=== PATIENT | male | born 1960 | race Caucasian/White ===

== ENCOUNTER 2017-12-24 23:36 | Emergency (ER) | payer OTHER ==
[~2017-12-24] VITALS: Ht 175.2 cm; Wt 63.5 kg
[~2017-12-24 23:36] MED LIST: 'TENORMIN50 MG PO; ANAPROX DS550 MG PO; B-1100 M1 PO; CATAFLAM50 MG PO; CEPHALEXIN500 M1 PO; CHLORDIAZEPOXID25 M1 PO; DARVOCET N 1001 TAB PO; DILANTIN100 MG PO; FLEXERIL10 MG PO; HYDROCODONE BIT1 T11 PO; IBU-8800 MG PO; KEFLEX500 MG PO; METOPROLOL SR25 MG PO; MOTRIN800 MG PO; Motrin,Rufen800 MG PO; NATURE'S BLEND F1 MG PO; NEURONTIN300 MG PO; NKHM; NORFLEX100 MG PO; PERCOCET 325 MG1 TA3 PO; PREDNISONE20 MG PO; ROBAXIN750 MG PO; TENORMIN50 MG PO; TRAMADOL HCL50 MG PO; ULTRAM50 MG PO; VICODIN 5-3001 EACH PO; VICODIN 5/500 505 MG PO; VOLTAREN75 MG PO; XANAX2 MG PO
[2017-12-25] MEDS ORDERED: CEPHALEXIN500 M1 PO (01:38)
== END 2017-12-25 02:21 | disposition home or self-care (01) ==
LOC: ED 23:36
DX: S51.011A Laceration without foreign body of right elbow, initial encounter (principal); F17.200 Nicotine dependence, unspecified, uncomplicated; Z23 Encounter for immunization; Z79.899 Other long term (current) drug therapy; W01.0XXA Fall on same level from slipping, tripping and stumbling without subsequent striking against object, initial encounter; Y93.89 Activity, other specified; Y92.89 Other specified places as the place of occurrence of the external cause; Y99.8 Other external cause status

== ENCOUNTER 2018-04-23 16:21 | Emergency (ER) | payer OTHER ==
[~2018-04-23] VITALS: Ht 175.2 cm; Wt 59.0 kg
== END 2018-04-23 16:50 | disposition left against medical advice (07) ==
LOC: ED 16:21
DX: F19.239 Other psychoactive substance dependence with withdrawal, unspecified (principal); R42 Dizziness and giddiness; Z53.21 Procedure and treatment not carried out due to patient leaving prior to being seen by health care provider

== ENCOUNTER 2018-09-11 03:23 | Emergency (ER) | payer OTHER ==
[~2018-09-11] VITALS: Ht 167.6 cm; Wt 59.0 kg
[2018-09-11 03:56] LABS: BASO % 0.3 % (0.0-1.0); EOS # 0.1 10*3/uL (0.0-0.4); EOS % 1.2 % (1.0-4.0); HEMOGLOBIN 13.2 g/dl (14.0-18.0); LYMPH # 3.1 10*3/uL (1.3-4.4); LYMPH % 31.9 % (27.0-41.0); MEAN CORPUSCULAR HGB 32.8 pg (27.0-31.0); MEAN CORPUSCULAR HGB CONC 33.8 g/dl (33.0-37.0); MEAN PLATELET VOLUME 10.3 fl (9.6-12.3); MONO # 0.9 10*3/uL (0.1-1.0); MONO % 9.3 % (3.0-9.0); NEUT # 5.5 10*3/uL (2.3-7.9); PLATELET COUNT AUTOMATED 172 10*3/uL (130-400); RED BLOOD COUNT 4.02 10*6/uL (4.50-5.90); RED CELL DISTRI WIDTH 14.1 % (0-14.5); WHITE BLOOD COUNT 9.6 10*3/uL (4.8-10.8)
[2018-09-11 04:04] LABS: INTERNATIONAL NORM RATIO 0.9 (2.0-3.5)
[2018-09-11 04:12] LABS: ALBUMIN 3.5 gm/dl (3.1-4.5); ALKALINE PHOSPHATASE 56 U/L (45-117); BUN 21 mg/dl (7-24); CHLORIDE 107 mmol/L (98-107); CREATININE 0.62 mg/dL (0.70-1.30); POTASSIUM 4.2 mmol/L (3.5-5.1); SGOT/AST 21 IU/L (3-35); SGPT/ALT 33 U/L (12-78); SODIUM 141 mmol/L (136-145); TOTAL PROTEIN 7.3 gm/dL (6.4-8.2)
[2018-09-11 04:14] LABS: ETHYL ALCOHOL < 3.0 mg/dl (<3)
[2018-09-11 05:09] LABS: BILIRUBIN NEGATIVE (NEGATIVE); BLOOD 2+ (NEGATIVE); CLARITY CLEAR (CLEAR); COLOR YELLOW (YELLOW); GLUCOSE NEGATIVE (NEGATIVE); KETONE NEGATIVE (NEGATIVE); LEUKO ESTERASE NEGATIVE (NEGATIVE); NITRITE NEGATIVE (NEGATIVE); SPECIFIC GRAVITY <= 1.005 (1.005-1.030); URINE AMPHETAMINES < 1000 (1000ng/ml); URINE BARBITURATES < 200 (200ng/ml); URINE BENZODIAZEPINES > 200 (200ng/ml); URINE CANNABINOIDS (THC) < 50 (50ng/ml); URINE COCAINE < 300 (300ng/ml); URINE METHADONE < 300 (300ng/ml); URINE OPIATES < 300 (300ng/ml); UROBILINOGEN 0.2 E.U./dl (0.2-1.0)
[2018-09-11 05:10] LABS: URINE PHENCYCLIDINE < 25 (25ng/ml)
[2018-09-11 05:24] LABS: RBC 16-20 rbc/hpf (0-2); WBC 0-2 wbc/hpf (0-5)
== END 2018-09-11 09:36 | disposition home or self-care (01) ==
LOC: ED 03:23
PROVIDERS: Emergency Medicine
DX: F11.10 Opioid abuse, uncomplicated (principal); I10 Essential (primary) hypertension; F17.200 Nicotine dependence, unspecified, uncomplicated; Z79.899 Other long term (current) drug therapy; Z89.021 Acquired absence of right finger(s)

== ENCOUNTER 2018-12-21 23:41 | Inpatient (IN) | payer OTHER ==
[2018-12-21 23:45] VITALS: BP 112/79
[2018-12-22 00:46] LABS: ALBUMIN 3.6 gm/dl (3.1-4.5); ALKALINE PHOSPHATASE 67 U/L (45-117); BUN 11 mg/dl (7-24); CHLORIDE 109 mmol/L (98-107); CREATININE 0.69 mg/dL (0.70-1.30); POTASSIUM 3.9 mmol/L (3.5-5.1); SGOT/AST 45 IU/L (3-35); SGPT/ALT 82 U/L (12-78); SODIUM 142 mmol/L (136-145); TOTAL PROTEIN 7.8 gm/dL (6.4-8.2)
[2018-12-22 00:47] LABS: ACETAMINOPHEN (TYLENOL) < 5.0 ug/ml (10-30)
[2018-12-22 01:06] LABS: BASO % 0.5 % (0.0-1.0); EOS # 0.1 10*3/uL (0.0-0.4); EOS % 0.8 % (1.0-4.0); HEMATOCRIT 44.1 % (42.0-52.0); HEMOGLOBIN 14.7 g/dl (14.0-18.0); LYMPH # 2.2 10*3/uL (1.3-4.4); MEAN CELL VOLUME 98.2 fl (80.0-94.0); MEAN CORPUSCULAR HGB 32.7 pg (27.0-31.0); MEAN CORPUSCULAR HGB CONC 33.3 g/dl (33.0-37.0); MEAN PLATELET VOLUME 10.4 fl (9.6-12.3); MONO # 0.6 10*3/uL (0.1-1.0); MONO % 7.2 % (3.0-9.0); NEUT % 63.2 % (47.0-73.0); PLATELET COUNT AUTOMATED 170 10*3/uL (130-400); RED BLOOD COUNT 4.49 10*6/uL (4.50-5.90); RED CELL DISTRI WIDTH 13.8 % (0-14.5); WHITE BLOOD COUNT 7.9 10*3/uL (4.8-10.8)
[2018-12-22 01:37] VITALS: BP 145/87
[2018-12-22 01:39] LABS: BILIRUBIN NEGATIVE (NEGATIVE); BLOOD 2+ (NEGATIVE); CLARITY CLEAR (CLEAR); COLOR YELLOW (YELLOW); GLUCOSE NEGATIVE (NEGATIVE); KETONE NEGATIVE (NEGATIVE); LEUKO ESTERASE NEGATIVE (NEGATIVE); NITRITE NEGATIVE (NEGATIVE); PH 5.5 (5.0-9.0); SPECIFIC GRAVITY <= 1.005 (1.005-1.030); UROBILINOGEN 0.2 E.U./dl (0.2-1.0)
[2018-12-22 01:47] LABS: URINE AMPHETAMINES < 1000 (1000ng/ml); URINE BARBITURATES < 200 (200ng/ml); URINE BENZODIAZEPINES > 200 (200ng/ml); URINE CANNABINOIDS (THC) < 50 (50ng/ml); URINE COCAINE < 300 (300ng/ml); URINE METHADONE < 300 (300ng/ml); URINE OPIATES < 300 (300ng/ml)
[2018-12-22 01:52] LABS: URINE PHENCYCLIDINE < 25 (25ng/ml)
--- NOTE | 2018-12-22 02:13 | NUR ---
Time: 212 A 58 year old MALE admitted to 4E under services of KAMALJIT MARCUS DO. Pt. arrived via stretcher from ER. Chief complaint: OPIATE WITHDRAWAL. PONCHO OMALLEY
[2018-12-22 02:30] VITALS: BP 154/87
--- NOTE | 2018-12-22 02:34 | NUR ---
PT HAS SMALL ABRASION TO RT SIDE OF FOREHEAD. PT REFUSED WOUND PHOTOGRAPHY STATING NOT NECESSARY. UPON BEDSIDE REPORT ON 4E 427, PT SHAYAN ISAAC RN BAREING WITNESS TO PT REFUSING WOUND PHOTOGRAPHY.
--- NOTE | 2018-12-22 02:47 | NUR ---
PATIENT REFUSING PICTURES AND TREATMENT OF FACIAL WOUND
[2018-12-22] MEDS ORDERED: SUBOXONE 8 MG-1 EACH SL (02:58)
[2018-12-22] MEDS ORDERED: DILANTIN100 MG PO (03:01)
--- NOTE | 2018-12-22 03:02 | NUR ---
SPOKE WITH DR BARRERA REGARDING PATIENT'S MED REC. PATIENT STATES HE HAS NOT TAKEN HIS DILANTIN FOR A WHILE BECAUSE HE DOES NOT NEED IT. STATES HIS LAST SEIZURE WAS ABOUT 6 MONTHS AGO. ALSO STATES HE ONLY TAKES HIS BLOOD PRESSURE MEDICATION "SOMETIMES." DR BARRERA AWARE OF THE LAST TIME THE MEDICATIONS WERE FILLED. HE STATES WE WILL TALK TO THE PATIENT ABOUT HIS MEDICATIONS AGAIN WHEN HE IS MORE ALERT.
--- NOTE | 2018-12-22 03:25 | NUR ---
MEDICATED WITH PRN ZOFRAN FOR C/O NAUSEA. NICOTINE PATCH APPLIED TO RIGHT UPPER ARM FOR CIGARETTE CRAVINGS. WILL MONITOR
[2018-12-22 06:18] LABS: PHENYTOIN (DILANTIN) < 0.4 ug/ml (10-20)
--- NOTE | 2018-12-22 07:49 | NUR ---
PHYSICAL THERAPY PAtient just admitted. PAtient intoxicated at admitt. Will defer this date and check status 12/23/18. Thank you for this referral. Renuka Pak,PT
--- NOTE | 2018-12-22 09:09 | NUR ---
C/O 'SHAKINESS', NAUSEA, LEGS CRAMPS, ANXIETY, RESTLESS LEGS AND ABD CRAMPS, GIVEN BENTYL, REQUIP, ROBAXIN, VISTARIL AND ZOFRAN. WILL CONT TO MONITOR. CALL LIGHT IN REACH.
--- NOTE | 2018-12-22 10:09 | NUR ---
PRN'S EFF. WILL CONT TO MONITOR. CALL LIGHT IN REACH.
--- NOTE | 2018-12-22 11:22 | NUR ---
MOTRIN GIVEN FOR C/O LEG PAIN OF 6/10. WILL CONT TO MONITOR. CALL LIGHT IN REACH.
--- NOTE | 2018-12-22 11:41 | NUR ---
PATIENT MEETS [facility]. PATIENT WANTS TO FOLLOW UP WITH HIS COUNSELING APPOINTMENT ON THURSDAY, December WITH [facility] [place]. GABBI PALOMO B.A. QUALITY ASSURANCE SPECIALIST
[2018-12-22 12:00] VITALS: BP 122/82
--- NOTE | 2018-12-22 12:22 | NUR ---
PT STATES THAT LEG PAIN IS A LITTLE BETTER AFTER MOTRIN. RATES IT A 4/10. WILL CONT TO MONITOR. CALL LIGHT IN REACH.
--- NOTE | 2018-12-22 13:16 | NUR ---
LANDON GODFREY [id number] Please refer to the physician's history and physical for past medical history, comorbid conditions, and allergies. Diagnosis: OPIATE WITHDRAWAL,ALCOHOL INTOX Hunter Score: 20,LOW OR NO RISK WOUND DESCRIPTIONS: INTACT SCABS NOTED TO RIGHT FOREHEAD AND CORNER OF RIGHT EYE. NO DRAINAGE OR ERYTHEMA NOTED. PATIENT STATES HE FELL HITTING HIS HEAD WHEN GETTING OUT OF BED. PATIENT DENIED PAIN AT TIME OF ASSESSMENT. Surface the patient is resting on: Isoflex SKIN PREVENTION RECOMMENDATION: 1. Pressure redistribution support surface as appropriate 2. Elevate heels 3. Remove boots/TEDS every shift and reapply 4. Head of bed 30 degrees as tolerated 5. Assess nutrition and hydration 6. Manage moisture 7. Avoid the use of containment devices while in bed 8. Use absorptive products on surfaces limit layers of linens on bed 9. Turn and reposition every 1-2 hours in bed and every 1 hour in chair as tolerated 10. Weight shifts every 15 minutes while up in chair 11. Offloading with pillows or device to keep heels elevated off bed 12. Monitor skin at least every shift 13. Inspect under medical devices twice a day WOUND TREATMENT RECOMMENDATIONS: PER PATIENT'S REQUEST LEAVE OPEN TO AIR.
--- NOTE | 2018-12-22 15:26 | NUR ---
PT RESTING QUIETLY. STATES HE DOESN'T NEED ANYTHING AT THIS TIME. WILL CONT TO MONITOR. CALL LIGHT IN REACH.
[2018-12-22 16:00] VITALS: BP 102/63
[2018-12-22 20:00] VITALS: BP 125/70
[2018-12-23] VITALS: BP 96/68
[2018-12-23 08:00] VITALS: BP 116/72
--- NOTE | 2018-12-23 10:54 | NUR ---
PATIENT REQUESTING MEDIATION FOR RESTLESSNESS AND MUSCLE ACHES. REQUIP AND ROBAXIN ADMINISTERED PRESCRIBED. WILL MONITOR FOR EFFECTIVENESS.
--- NOTE | 2018-12-23 11:14 | NUR ---
NO CHANGES HAVE BEEN MADE TO THE PATIENT'S AFTERCARE PLAN. PATIENT WILL FOLLOW UP WITH [facility] ON DECEMBER 28, 2018. STEVEN MORSE MS DEVELOPMENT TECHNICIAN
--- NOTE | 2018-12-23 11:26 | NUR ---
[facility] CALLED TO VERIFY IF PATIENT IS TAKING DILANTIN OR KEPPRA. DILANTIN FILLED 06/30/18 AND KEPPRA FILLED 06/29/18 PER PHARMACIST. INFORMATION RELAYED TO DR SCHNEIDER REQUESTED.
--- NOTE | 2018-12-23 11:49 | NUR ---
Occupational Therapy evaluation completed on 4 with full eval to follow. Precautions include IV UE. Patient is low complexity level via chart review, testing and evaluation. Recommend home at of, no further OT indicated. Thank you. Anupama Cerna OTR/l
--- NOTE | 2018-12-23 11:54 | NUR ---
PATIENT RESTING COMFORTABLY AT THIS TIME IN BED. STATES THAT MUSCLE SPASMS AND RESTLESSNESS A LITTLE BETTER AT THIS TIME. NO COMPLAINTS AT THIS TIME. WILL MONITOR.
--- NOTE | 2018-12-23 11:57 | NUR ---
PHYSICAL THERAPY PAtient evalauted on 4, full evaluation to follow. D/C PT after evaluation, patient 100 % (I) and agrees with d/c. PAtient is low complexity via chart review, tests and evaluation: [id number]. Thank you for this referral. Renuka Pak,PT
[2018-12-23 12:00] VITALS: BP 133/80
[2018-12-23 16:00] VITALS: BP 100/78
--- NOTE | 2018-12-23 18:12 | NUR ---
PATIENT REQUESTING MEDICATION FOR PAIN, MUSCLE ACHES, AND ANXIETY. MOTRIN, ROBAXIN, AND VISTARIL ADMINISTERED PRESCRIBED. WILL MONITOR FOR EFFECTIVENESS.
--- NOTE | 2018-12-23 19:12 | NUR ---
PATIENT RESTING COMFORTABLY AT THIS TIME. PATIENT HAS NO COMPLAINTS AT THIS TIME. WILL CONTINUE TO MONITOR.
[2018-12-23 20:05] VITALS: BP 112/66
--- NOTE | 2018-12-23 21:42 | NUR ---
PATIENT REQUESTING MEDICATION FOR RESTLESSNESS. REQUIP ADMINISTERED PRESCRIBED. WILL MONITOR FOR EFFECTIVENESS.
[2018-12-24] VITALS: BP 108/75
[2018-12-24 06:51] LABS: BASO % 0.3 % (0.0-1.0); EOS # 0.2 10*3/uL (0.0-0.4); EOS % 1.9 % (1.0-4.0); HEMATOCRIT 42.4 % (42.0-52.0); HEMOGLOBIN 13.8 g/dl (14.0-18.0); LYMPH # 2.3 10*3/uL (1.3-4.4); LYMPH % 25.9 % (27.0-41.0); MEAN CELL VOLUME 100.7 fl (80.0-94.0); MEAN CORPUSCULAR HGB 32.8 pg (27.0-31.0); MEAN CORPUSCULAR HGB CONC 32.5 g/dl (33.0-37.0); MEAN PLATELET VOLUME 10.5 fl (9.6-12.3); MONO % 10.5 % (3.0-9.0); NEUT # 5.5 10*3/uL (2.3-7.9); NEUT % 61.1 % (47.0-73.0); PLATELET COUNT AUTOMATED 159 10*3/uL (130-400); RED BLOOD COUNT 4.21 10*6/uL (4.50-5.90); RED CELL DISTRI WIDTH 13.9 % (0-14.5); WHITE BLOOD COUNT 9.1 10*3/uL (4.8-10.8)
[2018-12-24 07:09] LABS: CREATININE 0.65 mg/dL (0.70-1.30)
--- NOTE | 2018-12-24 10:55 | NUR ---
PATIENT REQUESTING TO LEAVE AMA, DR SERVIN AWARE, [facility] AWARE, SUEPRVISOR NOTIFIED. AMA PAPER SIGNED, IV HEPLOCK REMOVED TIP INTACT. PATIENT AMBULATORY, DENIES NEED FOR WHEELCHAIR.
== END 2018-12-24 10:55 | disposition left against medical advice (07) | DRG 894 ==
LOC: ED 23:41 → 4E 12-22 01:19 → EDHOLD 12-22 01:19 → EDBEDREQ 12-22 01:38 → 4E 12-22 01:39
PROVIDERS: Family Medicine; Student in an Organized Health Care Education/Training Program; ADMIT Internal Medicine
DX: F11.23 Opioid dependence with withdrawal (principal); F10.129 Alcohol abuse with intoxication, unspecified; R27.0 Ataxia, unspecified; R56.9 Unspecified convulsions; E87.8 Other disorders of electrolyte and fluid balance, not elsewhere classified; I10 Essential (primary) hypertension; F17.210 Nicotine dependence, cigarettes, uncomplicated; F13.10 Sedative, hypnotic or anxiolytic abuse, uncomplicated; R74.0 Nonspecific elevation of levels of transaminase and lactic acid dehydrogenase [LDH]; R00.0 Tachycardia, unspecified; R06.82 Tachypnea, not elsewhere classified; F10.10 Alcohol abuse, uncomplicated; Z71.6 Tobacco abuse counseling; Z79.899 Other long term (current) drug therapy; Z89.021 Acquired absence of right finger(s); Z90.49 Acquired absence of other specified parts of digestive tract